=== PATIENT | male | born 2000 | race Caucasian/White ===

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

== ENCOUNTER 2023-02-15 10:33 | Emergency (ER) | payer MEDICAID ==
[2023-02-15] MEDS ORDERED: TETANUS/DIPHTHERIA/PERTUSSIS 0.5 ML SYRINGE IM ONE (12:32)
--- NOTE | 2023-02-15 12:34 | ED Physician Documentation ---
PD HPI UPPER EXT INJURY - Stated complaint Stated Complaint: RT FINGER LAC - Chief complaint Chief Complaint: Laceration - History obtained from History obtained from: Patient, Family (mother) - History of Present Illness Location: Right, Finger (index) Type of injury: Laceration Where injury occurred: Home Timing - onset: Enter time (1029), Today Timing - duration: Minutes Timing - details: Abrupt onset, Still present Improved by: Rest Worsened by: Moving, Palpating Associated symptoms: No: Weakness, Numbness, Tingling Contributing factors: No: Anticoagulated Similar symptoms before: Diagnosis (laceration) Recently seen: Not recently seen - Additonal information Additional information: Juarez Barnett is a 22-year-old male who was doing the dishes today. There was a broken glass in the drain that he did not know about and when he went to unclog the drain he cut his finger on the broken glass. He is not up-to-date on his tetanus. He does not want sutures. Review of Systems Constitutional: denies: Fever Respiratory: denies: Cough GI: denies: Vomiting Skin: reports: Laceration (s) PD PAST MEDICAL HISTORY - Past Medical History Cardiovascular: None Psych: ADD/ADHD - Past Surgical History Past Surgical History: Yes HEENT: Myringotomy (tubes) - Present Medications Home Medications: Ambulatory Orders Medication Instructions Recorded Confirmed No Known Home Medications 10/08/20 10/08/20 - Allergies Allergies/Adverse Reactions: Allergies Allergy/AdvReac Type Severity Reaction Status Date / Time No Known Drug Allergies Allergy Verified 10/12/20 12:00 - Social History Does the pt smoke?: No Smoking Status: Never smoker Does the pt drink ETOH?: No Does the pt have substance abuse?: No - Immunizations Immunizations are current?: Yes - POLST Patient has POLST: No PD ED PE NORMAL - Vitals Vital signs reviewed: Yes (normal ) - General General: Alert and oriented X 3, No acute distress, Well developed/nourished - HEENT HEENT: Atraumatic, PERRL, EOMI - Respiratory Respiratory: No respiratory distress - Derm Derm: Normal color, Warm and dry, No rash - Extremities Extremities: No deformity, No edema, Other (right index finger with 1.5cm laceration radial surface distal digit to the nail. No FB. ) - Neuro Neuro: Alert and oriented X 3, broacher 2-12 intact, No motor deficit, No sensory deficit, Normal speech Eye Opening: Spontaneous Motor: Obeys Commands Verbal: Oriented GCS Score: 15 - Psych Psych: Normal mood, Normal affect Results - Vitals Vitals: Vital Signs - 24 hr 02/15/23 02/15/23 10:46 12:49 Temperature 36.7 C Heart Rate 97 87 Respiratory 15 17 Rate Blood Pressure 123/69 120/72 O2 Saturation 98 99 Oxygen O2 Source Room air Procedures - Laceration (location) right index Length in cm: 1.5 Wound type: Linear, Clean Neurovascular status: Sensory intact, Motor intact, Vascular intact Wound preparation: Hibiclens, Irrigated copiously NS Skin layer closure: Dermabond Other: Patient tolerated well, No complications, Neurovascular intact, Dressing applied, Tetanus booster given PD Medical Decision Making - ED course Complexity details: considered differential, d/w patient, d/w family ED course: 22-year-old male with a fairly superficial laceration to his index finger does not want sutures. I have recommended against glue but we will do this as it will temporize. This will heal regardless of treatment. Departure - Departure Disposition: 01 Home, Self Care Clinical Impression: Laceration of index finger Qualifiers: Encounter type: initial encounter Damage to nail status: with damage Foreign body presence: with foreign body Laterality: right Qualified Code(s): S61.320A - Laceration with foreign body of right index finger with damage to nail, initial encounter Condition: Stable Instructions: ED Laceration Ext Skin Glue Comments: Juarez Glue does not usually work well on the fingertip but your laceration is small and should heal regardless of treatment. Forms: PCP List Discharge Date/Time: 02/15/23 12:49
[2023-02-15 12:52] VITALS: BP 120/72; O2SAT 99
== END 2023-02-15 12:49 | disposition home or self-care (01) ==
LOC: ED 10:33
DX: S61.320A Laceration with foreign body of right index finger with damage to nail, initial encounter (principal); W25.XXXA Contact with sharp glass, initial encounter; Y93.G1 Activity, food preparation and clean up; Z23 Encounter for immunization
CPT/HCPCS: 12001; 90471; 99282

== ENCOUNTER 2023-06-04 06:45 | Emergency (ER) | payer MEDICAID ==
[2023-06-04 07:03] VITALS: BP 144/76; O2SAT 97
--- NOTE | 2023-06-04 07:10 | ED Physician Documentation ---
PD HPI HEENT - Stated complaint Stated Complaint: RT EAR RINGING - Chief complaint Chief Complaint: Heent - History obtained from History obtained from: Patient - History of Present Illness Timing - onset: How many hours ago (3), Today Timing - duration: Hours (3) Timing - details: Abrupt onset, Still present Location: Right ear (he was playing video game with headphones during the night and had abrupt onset of ringing in right ear that has not stopped. Has had some nasal congestion from allergies recently. No URI per se.) Worsens: No: Swalllowing, Position Associated symptoms: Congestion. No: Fever, Facial swelling, Headache Similar symptoms before: No diagnosis (has had ringing that lasts few seconds at a time in the past, but no regular. Denies vertigo nor balance problems.) Review of Systems Constitutional: denies: Fever, Chills Eyes: denies: Loss of vision, Decreased vision Nose: reports: Congestion Throat: denies: Sore throat Respiratory: denies: Cough Neurologic: denies: Headache, Head injury PD PAST MEDICAL HISTORY - Past Medical History Past Medical History: Yes Cardiovascular: None Psych: ADD/ADHD, Other Other Past Medical History: asperger's, insomnia - Past Surgical History Past Surgical History: Yes HEENT: Myringotomy (tubes) - Present Medications Home Medications: Ambulatory Orders Medication Instructions Recorded Confirmed No Known Home Medications 10/08/20 06/04/23 - Allergies Allergies/Adverse Reactions: Allergies Allergy/AdvReac Type Severity Reaction Status Date / Time No Known Drug Allergies Allergy Verified 06/04/23 06:48 - Social History Does the pt smoke?: No Smoking Status: Never smoker Does the pt drink ETOH?: No Does the pt have substance abuse?: No - Immunizations Immunizations are current?: Yes - POLST Patient has POLST: No PD ED PE NORMAL - Vitals Vital signs reviewed: Yes - General General: Alert and oriented X 3, No acute distress, Well developed/nourished - HEENT HEENT: PERRL, EOMI, Pharynx benign. No: Ears normal (left normal. Right with normal canal, minimal wax in canal, TM without redness but some fluid behind. ) - Neck Neck: Supple, no meningeal sign, No adenopathy - Cardiac Cardiac: RRR, No murmur - Respiratory Respiratory: Clear bilaterally - Derm Derm: Normal color, Warm and dry Results - Vitals Vitals: Oxygen O2 Source Room air PD Medical Decision Making - ED course Complexity details: considered differential (presume ear nerve stimulation from the noise/sound with the headphones. Has some congestion and mild serous otitis that could have enhanced it. Can try steroid single dose and then antihistamines few days. I would anticipate resolution of the tinnitus. ), d/w patient Departure - Departure Disposition: 01 Home, Self Care Clinical Impression: Ringing in right ear, Auditory complaints Condition: Stable Record reviewed to determine appropriate education?: Yes Instructions: Tinnitus Follow-Up: [facility] [Provider Group] Comments: There is just a mild amount of wax in the ear canal and does not seem to be blocking the passageway. This is normal. The eardrum she has some scar tissue to it but I do not see any obvious redness or swelling to suggest infection. Considerations would be just overstimulation of the nerve from the sound produced through the headphones and essentially like a "stuck hart" on your keyboard or such. It is basically than continuing to produce the sound. This will typically phased out over several hours or even a day or so. Otherwise though this often can come about because of inflammation or congestion through the middle ear creating a sluggish response of the hearing mechanisms. With that in mind, I would suggest an antihistamine medicine such as Viviane or Zyrtec twice daily for the next several days to week. You are given a single dose of an anti-inflammatory here as well that should last for a couple of days and help. If this is not resolved over the next several days or so, you could follow-up with the early childhood specialist. I provided the phone number for their office. They are typically good again people in fairly promptly. Forms: PCP List Discharge Date/Time: 06/04/23 07:37
[2023-06-04] MEDS: dexAMETHasone 4 MG TABLET PO STA (07:34)
[2023-06-04] MEDS: CETIRIZINE 10 MG TABLET PO STA (07:34)
== END 2023-06-04 07:37 | disposition home or self-care (01) ==
LOC: ED 06:45
DX: H93.11 Tinnitus, right ear (principal); H65.91 Unspecified nonsuppurative otitis media, right ear; F84.5 Asperger's syndrome
CPT/HCPCS: 99282; 99283; A9270; J8540